=== PATIENT | male | born 1965 | race Caucasian/White ===

== ENCOUNTER → 2019-12-09 09:34 | Outpatient (CLI) | payer OTHER ==
[2014-02-21 20:11] VITALS: BMI 44.2
--- NOTE | ~2019-12-09 | EC ---
PATIENT:NOAH ESPOSITO DATE OF SERVICE: 12/09/19 SEX: M MEDICAL RECORD: [id number] DATE OF : 69 LOCATION:[facility] AGE OF PATIENT: 54 ADMISSION DATE: 12/09/19 REFERRING PHYSICIAN: INTERPRETING PHYSICIAN: RITU FRAUSTO MD ECHOCARDIOGRAM REPORT ECHO CHARGES 4 ECHO COMPLETE Date: 12/09/19 CLINICAL DIAGNOSIS: H/O HTN/PACEMAKER PLACEMENT ECHOCARDIOGRAPHIC MEASUREMENTS (adult normal given) AC root (d.<3.7cm) 4.2 cm LV Septum d (<1.2 cm> 1.8 cm Valve Excursion 2.5 cm LV Septum (systole) 2.4 cm Left Atria (s.<4.0cm> 5.5 cm LVPW d(<1.2cm) 1.2 cm RV (d.<2.3cm) 3.8 cm LVPW (sytole) 2.3 cm LV diastole(<5.6CM) 6.0 cm MV E-F(>70mm/sec) cm LV systole 3.4 cm LVOT Diameter 2.5 cm MV exc.(>10mm) cm Est.ejection fraction (50-75%) % DOPPLER: LVIT cm/sec A 79.0 cm/sec E 51.0 cm/sec LA cm/sec RVSP 26.0 mmHg LVOT 93.0 cm/sec AOP1/2T m/s Asc. 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 Burrows TAPE# PACS Pericardial Effusion N DATE OF SERVICE: Adequate 2D, color flow imaging, spectral Doppler, and M-Mode. LVH is present. LV internal dimensions are dilated. Wall motion is normal. EF is greater than or equal to 55%. Aortic valve is tricuspid. No evidence of stenosis by Doppler interrogation. Left atrium is dilated 5.5 cm. Mitral valve shows no prolapse. Trace MR. Right-sided chambers are grossly normal. Trace TR. TRANSINT:[id number] Voice Confirmation ID: [id number] DOCUMENT ID: [id number] ECHOCARDIOGRAM REPORT [id number] NOAH ESPOSITO GREGORY A MD CC: [id number] DICTATION DATE: 12/09/19 1435 CONTRACT ATTORNEY: 12/09/[address] [facility] [address] [place] [phone]
[~2019-12-09 09:34] MED LIST: BUMEX 1 MG TAB1 MG PO; CENTRUM COMPLE1 EACH PO; FLOMAX0.4 MG PO; GAS-X80 MG PO; LOPID600 MG PO; LYSINE1000 MG PO; METOPROLOL TAR100 M1 OR; METOPROLOL TAR100 M1 PO; MOBIC7.5 MG PO; NUVIGIL150 MG PO; PRILOSEC20 MG PO; PROVENTIL/2.5 MG/3 M INH; VALIUM10 MG PO; VITAMIN B-121000 MCG PO; VITAMIN C1000 MG PO; ZOCOR40 MG PO
== END | disposition home or self-care (01) ==
LOC: D.HCCECHO 09:30
PROVIDERS: ATTEND Internal Medicine Interventional Cardiology
DX: I08.1 Rheumatic disorders of both mitral and tricuspid valves (principal)

== ENCOUNTER 2019-12-21 05:59 | Day surgery (SDC) | payer OTHER ==
[~2019-12-21] VITALS: Ht 177.8 cm; Wt 152.3 kg
[2019-12-21 06:30] LABS: HEMATOCRIT 41.4 % (42.0-54.0); HEMOGLOBIN 14.4 g/dL (13.5-17.5); MCH 31.1 pg (26.0-34.0); MCHC 34.8 g/dL (31.0-37.0); MCV 89.4 fL (80.0-100.0); RBC 4.63 10x6/uL (4.20-6.10); RDW 13.9 % (11.5-14.5); WBC 6.5 10x3/uL (4.8-10.8)
[2019-12-21] MEDS ORDERED: CYMBALTA60 MG PO (06:46)
[2019-12-21] MEDS ORDERED: BUSPAR5 MG PO (06:46)
[2019-12-21] MEDS ORDERED: NEXIUM40 MG PO (06:47)
[2019-12-21] MEDS ORDERED: NEURONTIN 300300 MG PO (06:47)
[2019-12-21] MEDS ORDERED: GLUCOPHAGE500 MG PO (06:48)
[2019-12-21] MEDS ORDERED: LISINOPRIL10 MG PO (06:48)
[2019-12-21] MEDS ORDERED: SYMBICORT 16010.2 GM INH (06:49)
[2019-12-21] MEDS ORDERED: ZANAFLEX4 MG PO (06:50)
[2019-12-21] MEDS ORDERED: FEXOFENADINE H180 MG PO (06:51)
[2019-12-21] MEDS ORDERED: CINNAMON500 MG PO (06:52)
[2019-12-21] MEDS ORDERED: OMEGA-3100 MG PO (06:52)
[2019-12-21] MEDS ORDERED: TANDEM DUAL AC106 MG PO (06:52)
[2019-12-21] MEDS ORDERED: MAGNESIUM OXID250 MG PO (06:53)
[2019-12-21] MEDS ORDERED: HYDROCODON-ACE1 EA10 PO (06:53)
[2019-12-21] MEDS ORDERED: PROBIOTIC BLEN1 EACH (06:54)
[2019-12-21 06:57] VITALS: Ht 177.8 cm; Wt 152.3 kg
--- NOTE | 2019-12-21 09:10 | NUR ---
PT DC INSTRUCTIONS REVIEWED AT THIS TIME, PT AND FAMILY VERBALIZE UNDERSTANDING. PT IV REMOVED, INTACT, NO REDNESS OR SWELLING NOTED AT SITE. PT IV SITE DRESSED WITH BANDAID, NOT BLEEDING AT THIS TIME.
--- NOTE | 2019-12-21 09:13 | NUR ---
PT LEAVING OPS AT THIS TIME VIA PERSONAL MOTORIZED WC. NAD, ESCORTED BY CHOCO BRICE.
--- NOTE | 2019-12-21 16:42 | OP ---
PATIENT NAME: NOAH ESPOSITO MEDICAL RECORD: [id number] :69 LOCATION:[facility] ADMISSION DATE: SURGEON: JOSEPH DIANA DO DATE OF OPERATION: 12/21/2019 PROCEDURE: EGD with biopsies. INDICATIONS FOR PROCEDURE: Nausea, GERD, right upper quadrant pain. SCOPE: Olympus video gastroscope. MEDICATIONS: Propofol 260 mg IV per anesthesia. ESTIMATED BLOOD LOSS: Minimal. COMPLICATIONS: None. FINDINGS: Informed consent was given. The patient was made comfortable with the above medication. After reaching an adequate level of sedation by slow IV push, the patient was placed on his left side. The endoscope was advanced under direct visualization through the mouth to the second portion of the duodenum. The upper and middle thirds of the esophagus appeared normal. In the distal third and GE junction, there was evidence of LA class C reflux-induced esophagitis and possible Akins's esophagus. This would be short segment if it is positive. Cold forceps, biopsies were taken from the squamocolumnar junction to submit for histopathology and to look for Akins's. The endoscope was advanced beyond the GE junction into the stomach and retroflexed to view the cardia and fundus, which appeared normal. Throughout the body of the stomach as well as the antrum and prepyloric regions, there were patchy areas of erythema and granularity consistent with mild gastritis. Cold forceps, biopsies were taken from the antrum to submit for histopathology and to rule out the presence of H. pylori. The endoscope was advanced beyond the pylorus into the duodenum, which appeared normal to the second portion. The endoscope was then withdrawn from the patient. The patient tolerated the procedure well and there were no complications. IMPRESSION: 1. LA class C reflux-induced esophagitis and possible Akins's esophagus in the distal third of the esophagus and gastroesophageal junction. 2. Mild gastritis involving the body and antrum of the stomach. PLAN AND RECOMMENDATIONS: 1. Discharge home when recovery parameters are met. 2. Follow up biopsy specimen results. 3. GERD diet and reflux precautions. 4. Continue current medications. 5. We will discuss symptoms with the patient and consider a right upper quadrant ultrasound and PIPIDA scan to rule out gallbladder dysfunction based on his symptoms. 6. Follow up in GI clinic in 4-6 weeks. TRANSINT:[id number] Voice Confirmation ID: [id number] DOCUMENT ID: [id number] OPERATIVE REPORT [id number] NOAH ESPOSITO NATHAN A DO at 1642 CC: [id number] DICTATION DATE: 12/21/1935 MARKET DEVELOPER: 12/21/19 0950 [facility] 12/21/19 [place] [id number] [place] [phone]
== END 2019-12-21 09:13 | disposition home or self-care (01) ==
LOC: D.OPS 05:59
PROVIDERS: Anesthesiology; ATTEND Internal Medicine Gastroenterology
DX: R11.0 Nausea (principal); K21.9 Gastro-esophageal reflux disease without esophagitis; R10.11 Right upper quadrant pain; K29.70 Gastritis, unspecified, without bleeding; K57.30 Diverticulosis of large intestine without perforation or abscess without bleeding; Z86.010 Personal history of colon polyps